=== PATIENT | female | born 1980 | race Caucasian/White ===

== ENCOUNTER → 2020-07-25 09:10 | Outpatient (CLI) | payer BC, SELFPAY ==
--- NOTE | ~2020-07-25 | MMUS_ITS ---
EXAMINATION: MM diagnostic meghan BI w valencia, US breast BI complete HISTORY: Chronic bilateral lumpy texture of the breasts TECHNIQUE: ML, MLO and craniocaudal 3-D tomosynthesis images of both breasts were performed and synth etic 2-D images were generated. CAD analysis was submitted and interpreted. High resolution complete bilateral breast ultrasound was performed. COMPARISON: 06/11/2019 bilateral diagnostic digital mammogram and bilateral complete breast ultrasoun d 04/28/2018 bilateral complete ultrasound 10/04/2017 bilateral diagnostic digital mammogram and bilateral complete breast ultrasound BREAST PARENCHYMAL COMPOSITION: The breasts are extremely dense, which lowers the sensitivity of mamm ography. FINDINGS: MAMMOGRAPHIC FINDINGS: There is a biopsy marker in the upper outer quadrant of the right breast. History of benign prior rig ht breast biopsy in 2015. Bilateral breast masses are noted, particularly in the upper outer right breast and right axillary ta il where at least several low-density circumscribed up to 3 cm or greater masses are noted, likely be nign, probably cysts. Stable approximately 7.5 mm mass is suggested posteriorly in the inner posterio r aspect of the upper inner quadrant of the left breast, unchanged since 06/11/2019. Bilateral complete breast ultrasound examination is recommended. No architectural distortion, malignant calcification, skin thickening or retraction of either breast is detected. ULTRASOUND: There are multiple bilateral simple and septated cysts, the largest on the right situated at 10:00 7 cm from the nipple, measuring up to 5.7 x 4.7 x 1.5 cm dimension. The largest on the left situated at 3:00 6 cm from the nipple, measuring up to 6.4 x 12.6 mm. No suspicious mass or shadowing of either breast is detected. IMPRESSION: 1. Multiple bilateral breast cysts; no evidence of malignancy 2. Routine annual mammographic screening is recommended, with ultrasound as clinically appropriate BI-RADS Category 2: Benign finding(s). Reviewed, dictated and finalized at location A. TECHNICIAN IMPRESSION: 1. Multiple bilateral breast cysts; no evidence of malignancy 2. Routine annual mammographic screening is recommended, with ultrasound as cli nically appropriate BI-RADS Category 2: Benign finding(s).
== END ==
PROVIDERS: Visit Provider Obstetrics & Gynecology
DX: N60.02 Solitary cyst of left breast (principal); N60.01 Solitary cyst of right breast; N63.11 Unspecified lump in the right breast, upper outer quadrant; N63.31 Unspecified lump in axillary tail of the right breast
CPT/HCPCS: 76641; 77062; 77066; G0279

== ENCOUNTER 2021-04-24 10:42 | Outpatient (CLI) | payer BC, SELFPAY ==
--- NOTE | ~2021-04-24 | US_ITS ---
EXAMINATION: US OB follow up DATE: 04/24/2021 11:30 INDICATION: Second trimester viability assessment TECHNIQUE: Real-time ultrasound of the pelvis was performed. The interpreting radiologist was not pre sent for the study. COMPARISON: None. FINDINGS: There is a single living fetus in vertex presentation. The placenta is fundal/anterior. Fet al cardiac activity and movement are noted. heart rate is 161 beats per minute (bpm). The amniotic fluid index is subjectively normal. The following biometric data were obtained: Biparietal diameter (BPD): 2.6 cm; head circumference (HC): 10.0 cm; abdominal circumference (AC): 8. 5 cm; femur length (FL): 1.3 cm. These measurements are concordant. Estimated weight is 97 g +/- 14 g, which correlates with the 66th percentile when 10/19/2021 is used as estimated date of delivery. As single measurements, these parameters are each equal to the following estimated gestational ages w ith ranges of +/- 2 standard deviations: BPD: 14 weeks 5 days +/- 1 weeks 1 days. HC: 14 weeks 5 days +/- 1 weeks 1 days. AC: 14 weeks 6 days +/- 1 weeks 5 days. FL: 14 weeks 0 days +/- 1 weeks 3 days. estimated gestational age based solely on measurements from this exam is 14 weeks 4 days +/- 1 weeks 0 days. IMPRESSION: 1. Single living fetus in vertex presentation. 2. Fundal/anterior placenta. 3. Estimated weight is 97 g +/- 14 g, which correlates with the 66th percentile when 10/19/2021 is used as estimated date of delivery. Reviewed, dictated and finalized at location A. IMPRESSION: 1. Single living fetus in vertex presentation. 2. Fundal/anterior placenta. 3. Estimated weight is 97 g +/- 14 g, which correlates with the 66th perc entile when 10/19/2021 is used as estimated date of delivery.
== END 2021-04-24 10:43 | disposition home or self-care (01) ==
PROVIDERS: PCP Family Medicine; Visit Provider Obstetrics & Gynecology
DX: Z36.89 Encounter for other specified antenatal screening (principal)
CPT/HCPCS: 76816

== ENCOUNTER 2021-08-01 09:44 | Outpatient (CLI) | payer BC, SELFPAY ==
[2021-08-01] MEDS: RHO(D) IMMUNE GLOBULIN 300 MCG/2 ML SYRINGE IM (11:21)
== END 2021-08-01 09:45 | disposition home or self-care (01) ==
LOC: ANHLAB 09:47
PROVIDERS: PCP Family Medicine; Visit Provider Obstetrics & Gynecology
DX: Z34.90 Encounter for supervision of normal pregnancy, unspecified, unspecified trimester (principal); Z3A.00 Weeks of gestation of pregnancy not specified
CPT/HCPCS: 36415; 85461; 90384; 96372; J2790

== ENCOUNTER 2021-09-28 09:35 | Outpatient (RCR) | payer BC, SELFPAY ==
[2021-09-28 10:30] VITALS: BP 110/55; PULSE 85
== END 2021-12-27 23:59 | disposition home or self-care (01) ==
LOC: ANHOBOP 09:35
PROVIDERS: PCP Family Medicine; Visit Provider Obstetrics & Gynecology
DX: O36.8130 Decreased fetal movements, third trimester, not applicable or unspecified (principal); Z3A.36 36 weeks gestation of pregnancy
CPT/HCPCS: 59025

== ENCOUNTER 2021-10-14 11:05 | Outpatient (CLI) | payer BC, SELFPAY ==
[2021-10-14 12:08] LABS: Hematocrit 36.4 % (37.0-47.0); Hemoglobin 12.3 g/dL (12.0-15.0); Mean Corpuscular HGB Conc 33.8 g/dl (32-36); Mean Corpuscular Hemoglobin 32.1 pg (26-34); Mean Platelet Volume 11.8 fl (7.4-10.4); Platelet Count Result 202 k/mm3 (150-375); Red Blood Count 3.83 M/mm3 (4.2-5.4); Red Cell Distribution Width 13.5 % (11.5-14.5); White Blood Count 9.2 K/mm3 (4.5-10.0)
[2021-10-14 14:55] LABS: Rapid Plasma Reagin Non-Reactive (NonReactive)
== END 2021-10-14 11:06 | disposition home or self-care (01) ==
LOC: ANHLAB 11:08
PROVIDERS: PCP Family Medicine; Visit Provider Obstetrics & Gynecology
DX: Z34.93 Encounter for supervision of normal pregnancy, unspecified, third trimester (principal); Z3A.00 Weeks of gestation of pregnancy not specified
CPT/HCPCS: 36415; 85027; 86592; 86850; 86900; 86901

== ENCOUNTER 2021-10-16 09:50 | Inpatient (IN) | payer BC, SELFPAY ==
[2021-10-16] VITALS (49 sets, daily range): BP systolic 55–129; BP diastolic 44–105; PULSE 71–143; RESP 15–20; TEMP 36.1–37.2; O2SAT 83–100; BMI 33.3
--- NOTE | 2021-10-16 10:21 | LDADM ---
This patient, Zara Drake, was admitted to Labor/Delivery/Recovery 120 on 10/16/21 at 09:50. Plans for labor, pain management and were discussed with patient. Patient/family oriented to hospital policies and general routines including ID bracelet, bed and alarms, visiting hours, pain management, procedures, bathroom and other care routines, personal items, smoking policy, room service/diet and guest tray routines, infant security routines, and visiting hours. Patient/Family are encouraged to report perceived risks to care and to ask questions if they do not understand what they are told or what they should do. See OBIX for further documentation.
[2021-10-16] MEDS: LACTATED RINGERS 1,000 ML 125 ML IV CONT (10:39)
--- NOTE | 2021-10-16 12:04 | PM.IMHP ---
H&P: HPI History of Present Illness Date/Time: 10/16/21 12:04 41 y/o G1 at 39 weeks with breech presentation, here for primary . GBS neg Chief Complaint: Here for c section Review of Systems Review of Systems: All systems reviewed & are unremarkable except as noted in HPI and below PMFSH Past Medical History Medical History GERD (gastroesophageal reflux disease) Hypothyroidism affecting Surgical History Surgical History History of LEEP (loop electrosurgical excision procedure) of cervix complicating Family History Family History Father Asthma Sibling Family history of blood dyscrasia Social History Social History Smoking status: Never smoker Alcohol intake: current Substance use: never Spiritual care concerns: No Meds Home Medications and Allergies Home Medications Medication Instructions Recorded Confirmed Type PNV cmb#95-ferrous fumarate-FA 1 tablet PO DAILY 10/03/21 10/16/21 History [] levothyroxine 50 mcg PO DAILY 10/03/21 10/16/21 History omeprazole 40 mg PO DAILY 10/03/21 10/16/21 History Allergies Allergy/AdvReac Type Severity Reaction Status Date / Time amoxicillin [From Augmentin] AdvReac Diarrhea Verified 10/16/21 11:26 clavulanic acid AdvReac Diarrhea Verified 10/16/21 11:26 [From Augmentin] Vital Signs Vital Signs - 24 hr 10/16/21 10:38 Temperature 37.2 C Pulse Rate 90 Respiratory Rate 18 Blood Pressure 124/65 Exam Const: Orientation/consciousness: patient oriented x3 Other: Well-developed, well-nourished female in no acute distress. Neck: Thyroid: thyroid normal Lymphatic: no lymphadenopathy noted (in neck, axilla or inguinal nodes) Resp: Effort & Inspection: normal respiratory effort Auscultation: clear to auscultation bilaterally Cardio: Rate: regular rate Rhythm: regular rhythm Heart sounds: S1 normal heart sound present and S2 normal heart sound present GI: Other: ABD: Soft, nontender, nondistended, gravid. NST reactive. TOCO: occasional contraction. No guarding or rebound tenderness. No hepatosplenomegaly. Bedside ultrasound by me confirms persistent breech presentation. : General: Yes no CVA tenderness Other: Cervix closed. Back/Spine/Pelvis: Back: no CVA tenderness Skin: General skin exam: normal color and no rashes or lesions noted Neuro: General: patient oriented x3 Extrem: Other: Extremities: nontender with no edema Psych: Mental Status: mental status grossly normal Affect: normal affect Assessment and Plan Assessment and plan (1) Breech presentation: Code(s): O32.1XX0 - Maternal care for breech presentation, not applicable or unspecified Status: Acute Assessment and Plan: A: IUP at 39 weeks with breech presentation. P: Offered primary She understands risks of surgery to include risks of anesthesia, risks of pain, infection, bleeding, blood products, thromboembolic phenomena and damage to adjacent structures such as bowel, bladder, ureters, blood vessels and nerves. She understands all these risks and elects to proceed with surgery. (2) Term : Code(s): Z34.90 - Encounter for supervision of normal , unspecified, unspecified trimester Status: Acute
--- NOTE | 2021-10-16 12:07 | WPDANESEPPF ---
Anes - Initial Pre Proc Eval Procedure: Operation Date: 10/16/21 12:00 Proposed Procedures p Section - Munir Chou MD Date/Time: 10/16/21 12:07 Surgeon: Munir Chou MD Pre Op Diagnosis: C/Section Patient Data Age: 41 Gender: F Height: 1.68 m Weight: 93.5 kg Last Vital Signs Temp 37.2 C 10/16/21 10:38 Pulse 90 10/16/21 10:38 Resp 18 10/16/21 10:38 BP 124/65 10/16/21 10:38 Allergies Allergy/AdvReac Type Severity Reaction Status Date / Time amoxicillin [From Augmentin] AdvReac Diarrhea Verified 10/16/21 11:26 clavulanic acid AdvReac Diarrhea Verified 10/16/21 11:26 [From Augmentin] Home Medications Medication Instructions Recorded Confirmed Type PNV cmb#95-ferrous fumarate-FA 1 tablet PO DAILY 10/03/21 10/16/21 History [] levothyroxine 50 mcg PO DAILY 10/03/21 10/16/21 History omeprazole 40 mg PO DAILY 10/03/21 10/16/21 History Patient hx anesthesia problems: none Family hx anesthesia problems: none Results Review: All pre-operative results and documents have been reviewed as part of the pre-operative evaluation. [facility] Past Medical History Medical History GERD (gastroesophageal reflux disease) Hypothyroidism affecting Surgical History Surgical History History of LEEP (loop electrosurgical excision procedure) of cervix complicating Family History Family History Father Asthma Sibling Family history of blood dyscrasia Social History Social History Smoking status: Never smoker Alcohol intake: current Substance use: never Spiritual care concerns: No Anes - Eval Final PreProcedure Day of Procedure 10/16/21 12:07 Patient weight: overweight Heart: regular rate and rhythm Lungs: clear to auscultation Airway: Mallampati scale class II Neurological: alert and oriented Last oral intake: >/= 8 hours ASA classification: II Emergent: no Anesthetic plan: proceed Anesthesia type and monitoring: regional spinal and standard monitoring Results Review: All pre-operative results and documents have been reviewed as part of the pre-operative evaluation. Informed Consent: The patient's anesthetic plan and its attendant risks and benefits were discussed with the patient/family/POA. Questions were solicited and answers provided to the satisfaction of the patient/family/POA.
[2021-10-16] MEDS: ceFAZolin 2 GM/D5W 50 ML 2 GM/50 ML BAG IVPB (12:16)
--- NOTE | 2021-10-16 13:14 | PM.OBPRVD ---
OB - Delivery Note Procedure Delivery date: 10/16/21 Procedure: Procedures Operation Date: 10/16/21 12:00 <No data on this case meets the specified criteria> Primary low transverse delivery Events: Breech Presentation Delivery monitor: External FHT and External Uterine Route of delivery: (LTCS) Specimen: Yes (cord blood) Quantitative Blood Loss (ml): 585 Anesthesia type: Spinal Disposition: PACU Complications: None Narrative: After persistent breech presentation was confirmed by bedside ultrasound, the patient was taken to the operating room where she was prepared and draped in the usual sterile fashion in dorsal supine position with a leftward tilt. She received cefazolin preoperatively. Spinal anesthesia was found to be adequate. A Pfannenstiel skin incision was made and carried through to the underlying layer of the fascia. The fascia was incised in the midline and the incision was extended laterally. The fascia was dissected free of the underlying rectus muscles. The rectus muscles were in the midline. The peritoneum was identified, tented up and entered sharply. The peritoneal incision was extended superiorly and inferiorly with good visualization of the bladder. The bladder blade was placed. The vesicouterine peritoneum was identified, tented up and entered sharply. The incision was extended laterally and the bladder flap was developed. The bladder blade was replaced. The uterus was then incised sharply in a transverse fashion along the lower uterine segment. The incision was extended laterally. The infant's breech was delivered to the level of the scapulae. The arms were swept across the chest and delivered. The head was flexed and gently delivered. The nose and mouth were bulb suctioned. After a delay, the cord was clamped and cut. The was handed off the field. Cord blood was collected. The placenta was removed manually and was passed off the field. The uterus was exteriorized and cleared of all clots and debris. The uterine incision was reapproximated using 0 Monocryl in a running, locked fashion. A second, imbricating layer of the same suture was run. Excellent hemostasis resulted as did excellent reapproximation of the normal anatomy. The uterus was returned the abdomen. The pelvis was irrigated copiously with warmed normal saline. Rigorous hemostasis was assured. The fascial layer was reapproximated using 0 Vicryl in a running fashion. The skin was closed with a running, subcuticular stitch of 4 0 Vicryl. Dermaflex was applied externally. Sponge, lap, needle and instrument counts were correct. The patient was taken to the recovery room in stable condition. The infant went to the nursery in stable condition. I was present and scrubbed the entire procedure. Baby Date of : 10/16/21 Time of : 12:45 Weeks of gestation at delivery: 39 Infant gender: Male Weight (pounds): 8 Weight (ounces): 4 presentation: breech Placenta delivery description: Manual Removal and Normal Configuration Cord Vessel Description: 3 Vessels and Delayed Cord Clamping score one minute: 9 score five minutes: 9
--- NOTE | 2021-10-16 13:18 | P.DS_ITS ---
DS: Admitting Diagnosis Discharge Date 10/19/21 Admitting Diagnosis IUP at 39 weeks Breech presentation DS: Discharge Diagnosis Discharge Diagnosis (1) Term : Code(s): Z34.90 - Encounter for supervision of normal , unspecified, unspecified trimester Status: Acute (2) Breech presentation: Code(s): O32.1XX0 - Maternal care for breech presentation, not applicable or unspecified Status: Acute OB - DS: Summary OB Procedures : NST and Ultrasound OB Procedures Intrapartum: OB Procedures: : None Peripartum Data Procedures: Procedures Operation Date: 10/16/21 12:00 <No data on this case meets the specified criteria> Primary LTCS Discharge Plan Discharge Attending physician on discharge: Munir Chou Discharging Clinician: Munir Chou Patient Disposition: Home, Self-Care Activity: may shower, may drive after 2 weeks and pelvic rest Diet: regular Wound Care Instructions: keep dressing dry Discharge Instructions: Call or return if temperature above 100.4? F, increased abdominal pain, incr eased vaginal bleeding or any new problems. Stand Alone Forms: General Discharge Information Follow-up/Referrals: Munir Chou MD [Physician] - 4 Weeks Discharge Medications: New ibuprofen 600 mg tablet 600 mg PO Q6H PRN (Reason: cramps) Qty: 30 RF: 0 hydrocodone-acetaminophen 5-325 mg tablet 1 - 2 tablet PO Q6H Qty: 30 RF: 0 Continued omeprazole 40 mg Capsule,Delayed Release(Dr/Ec) 40 mg PO DAILY RF: 0 levothyroxine 50 mcg Tablet 50 mcg PO DAILY RF: 0 PNV cmb#95-ferrous fumarate-FA [] 28 mg iron- 800 mcg Tablet 1 tablet PO DAILY RF: 0 Date of admission: 10/16/21 09:50 Primary Care Provider: Trena Foss Admitting Provider: Munir Chou Attending physician on admission: Munir Chou Condition: Stable
[2021-10-16] MEDS: OXYTOCIN 30 UNITS/NS 500 ML 30 UNITS/500 ML BAG 125 UNITS IV CONT (13:44)
[2021-10-16] MEDS: KETOROLAC 30 MG/ML VIAL (*BKC) IV PUSH ×2 (14:34→20:11)
[2021-10-16] MEDS: LORATADINE 10 MG TABLET PO (14:52)
--- NOTE | 2021-10-16 14:57 | SUR.PHASEI ---
Report called to Paulina Kumar RN pt going to room 282 for pp care once recovery completed.
--- NOTE | 2021-10-16 15:45 | PC.NURSE ---
Patient transferred to post room #282 per stretcher from labor and delivery. Support person present. Oriented to unit, room, information board, rooming in, admission packet and security measures. Patient verbalizes understanding.
[2021-10-16] MEDS: DEXTROSE 5%/0.45% SOD CHL 1,000 ML 125 ML IV CONT (17:54)
[2021-10-17 04:30] VITALS: BP 112/62; PULSE 105; RESP 16; TEMP 36.9; O2SAT 98
[2021-10-17] MEDS: IBUPROFEN 600 MG TABLET PO ×4 (04:51→23:55)
[2021-10-17 05:02] LABS: Basophils Percent Auto 0.4 % (0.2-1.2); Eosinophils Absolute Auto 0.1 K/mm3 (0-0.3); Eosinophils Percent Auto 0.9 % (0-4.4); Hematocrit 31.7 % (37.0-47.0); Hemoglobin 10.6 g/dL (12.0-15.0); Immature Granulocyte Absolute 0.06 K/mm3 (0.00-0.031); Immature Granulocyte Percent A 0.6 % (0-0.5); Lymphocytes Percent Auto 9.3 % (18.3-44.2); Mean Corpuscular HGB Conc 33.4 g/dl (32-36); Mean Corpuscular Hemoglobin 32.4 pg (26-34); Mean Corpuscular Volume 96.9 fl (80-100); Mean Platelet Volume 11.7 fl (7.4-10.4); Monocytes Absolute Auto 0.8 K/mm3 (0.1-0.6); Monocytes Percent Auto 7.4 % (2.6-8.5); Neutrophils Absolute Auto 8.8 K/mm3 (1.3-6.7); Neutrophils Percent Auto 81.4 % (45.5-73.1); Platelet Count Result 185 k/mm3 (150-375); Red Blood Count 3.27 M/mm3 (4.2-5.4); Red Cell Distribution Width 13.3 % (11.5-14.5); White Blood Count 10.7 K/mm3 (4.5-10.0)
--- NOTE | 2021-10-17 07:01 | P.PNOB_ITS ---
OB - PN: Subj Subjective Date/time seen: 10/17/21 07:01 Patient comments: no complaints and pain well controlled baby status: doing well OB - PN: Obj Data Labs CBC & Chem 7: 10/17/21 04:44 Labs: Laboratory Results - last 24 hr 10/17/21 04:44 WBC 10.7 H RBC 3.27 L Hgb 10.6 L Hct 31.7 L MCV 96.9 MCH 32.4 MCHC 33.4 RDW 13.3 Plt Count 185 MPV 11.7 H Immature Gran % (Auto) 0.6 H Neut % (Auto) 81.4 H Lymph % (Auto) 9.3 L Doddridge % (Auto) 7.4 Eos % (Auto) 0.9 Baso % (Auto) 0.4 Lymph # (Auto) 1.00 Dod[place]idge # (Auto) 0.8 H Eos # (Auto) 0.1 Baso # (Auto) 0.0 Abs Immat Gran (auto) 0.06 H Absolute Neuts (auto) 8.8 H Absolute Nucleated RBC 0.0 Nucleated RBC % 0.0 OB - PN A/P Plan day: 1 Plan: routine care Time Spent With Patient Time: Total time spent is greater than 50% in coordination of care (as documented) at patient's floor/unit and/or counseling patient: Time with patient: less than 15 minutes Review of Systems Review of Systems: All systems reviewed & are unremarkable except as noted in HPI and below Exam Const: General: no acute distress Eyes: General: appearance normal, both eyes and all related structures Neck: Neck: supple and no JVD Thyroid: thyroid normal Resp: Effort & Inspection: normal respiratory effort Auscultation: clear to auscultation bilaterally Cardio: Rate: regular rate Rhythm: regular rhythm GI: Inspection: normal to inspection and incision (cdi) Auscultation: normal bowel sounds : General: Yes bladder normal to palpation External Female Exam: normal external appearance Speculum Exam - Vagina: normal vaginal discharge and No vaginal bleeding Speculum Exam - Cervix: nontender Bimanual exam- vagina & uterus: bladder normal to palpation and No Cervical tenderness present OB/external & speculum: No vaginal bleeding Skin: General skin exam: no rashes or lesions noted Extrem: General: normal to inspection and no edema Psych: Mental Status: mental status grossly normal Affect: normal affect
[2021-10-17 08:00] VITALS: BP 113/71; PULSE 90; RESP 18; TEMP 36.8
[2021-10-17] MEDS: MULTIVIT/MIN/PREN/FOL AC/IRON TABLET 1 TAB PO (08:09)
[2021-10-17] MEDS: SIMETHICONE 80 MG TAB.CHEW PO ×3 (08:09→22:58)
[2021-10-17] MEDS: LANOLIN (LANSINOH) 7.5 GM CREAM 1 APPLIC TOPICAL (08:11)
--- NOTE | 2021-10-17 09:00 | PC.NURSE ---
Nipple shield provided to mother due to shallow latch. Reviewed good handwashing, cleaning the nipple shield and application. Discussed with mom the nipple shield precautions and possible complications. Mom and baby guide referred to as a resource for using a nipple shield, out-patient services and when to call a provider. Mom voiced understanding of the importance of hand expression, nipple stimulation and initiating a pumping schedule if continues to nurse with the shield.
[2021-10-17] MEDS: HYDROcodone/acetaminophen (*CRX) 5-325 MG TABLET 1 TAB PO ×2 (10:20→22:58)
[2021-10-17 12:30] VITALS: BP 110/70; PULSE 88; RESP 18; TEMP 36.8
--- NOTE | 2021-10-17 13:21 | WPDANLDPN2 ---
Anes-Prog Note L&D Date/Time: 10/17/21 13:21 Comfortable throughout: section Neuraxial method: spinal Epidural/Spinal procedure site: clean & non-tender Neuro status: Neuro function grossly intact. Cardiovascular status: normal Respiratory status: normal Airway patency: baseline Mental status: baseline Post-Op hydration status: normal Vital Signs: Last Vital Signs Temp 36.8 C 10/17/21 08:00 Pulse 90 10/17/21 08:00 Resp 18 10/17/21 08:00 BP 113/71 10/17/21 08:00 Pulse Ox 98 10/17/21 04:30 Pain score (VAS): 08/31 I/O: Intake & Output 10/16/21 10/17/21 10/17/21 23:59 07:59 15:59 Intake Total 500 1200 200 Output Total 925 1400 600 Balance -425 -200 -400 Post-procedural complaints: none Patient feedback: Patient satisfied with anesthetic care.
--- NOTE | 2021-10-17 13:22 | WPDANLDNPN2 ---
Anes-Prog Note L&D-Neuraxial Date/Time: 10/17/21 13:22 Neuraxial medications: intrathecal PF morphine Opiod-related complaints: none Patient feedback: Patient satisfied with post-operative pain management.
--- NOTE | 2021-10-17 14:00 | PC.NURSE ---
Breast pump provided due to ineffective latch. Reviewed information regarding pump care, hand washing, nipple care and pumping 8 times in 24 hours (1-2 at night) for 10-15 minutes. Discussed she may want to pump after feedings or between feedings. If after feeding, rest for 5-10 minutes. Get something to eat/drink, use the restroom, then pump. Collection and storage of breastmilk per mom and baby guide. Encouraged mom to place skin to skin, breast massage and use hand expression and/or a breast pump in a relaxing atmosphere. Reviewed recording pumping schedule on the feeding sheet . Referred to the visual handout along with the mom and baby guide as a resource and when to call a provider.
[2021-10-17] MEDS: DOCUSATE SODIUM 100 MG CAPSULE PO (18:09)
[2021-10-17 19:00] VITALS: BP 110/55; PULSE 95; RESP 16; TEMP 36.7; O2SAT 98
[2021-10-18] MEDS: IBUPROFEN 600 MG TABLET PO ×3 (05:45→19:09)
--- NOTE | 2021-10-18 07:08 | PM.OBPNVD ---
OB - PN: Subj Subjective Date/time seen: 10/18/21 07:08 Patient comments: no complaints and pain well controlled baby status: doing well and nursing well OB - PN: Obj Data Labs CBC & Chem 7: 10/17/21 04:44 OB - PN A/P Time Spent With Patient Time: Total time spent is greater than 50% in coordination of care (as documented) at patient's floor/unit and/or counseling patient: Review of Systems Review of Systems: All systems reviewed & are unremarkable except as noted in HPI and below Exam Const: General: no acute distress Eyes: General: appearance normal, both eyes and all related structures Neck: Neck: supple and no JVD Thyroid: thyroid normal Resp: Effort & Inspection: normal respiratory effort Auscultation: clear to auscultation bilaterally Cardio: Rate: regular rate Rhythm: regular rhythm GI: Inspection: non-distended GI Palp: Yes Soft to palpation, No Tenderness to palpation present (GI) and No Guarding due to palpation present (GI) Auscultation: normal bowel sounds : General: Yes bladder normal to palpation External Female Exam: normal external appearance Speculum Exam - Vagina: normal vaginal discharge and No vaginal bleeding Speculum Exam - Cervix: nontender Bimanual exam- vagina & uterus: bladder normal to palpation and No Cervical tenderness present OB/external & speculum: No vaginal bleeding Skin: General skin exam: no rashes or lesions noted Extrem: General: normal to inspection and no edema Psych: Mental Status: mental status grossly normal Affect: normal affect
[2021-10-18 08:00] VITALS: BP 139/66; PULSE 87; RESP 18; TEMP 36.9
[2021-10-18] MEDS: MULTIVIT/MIN/PREN/FOL AC/IRON TABLET 1 TAB PO (08:17)
[2021-10-18] MEDS: DOCUSATE SODIUM 100 MG CAPSULE PO ×2 (08:17→16:21)
[2021-10-18] MEDS: SIMETHICONE 80 MG TAB.CHEW PO ×4 (08:18→19:10)
[2021-10-18] MEDS: HYDROcodone/acetaminophen (*CRX) 5-325 MG TABLET 1 TAB PO ×5 (10:07→22:46)
[2021-10-18 20:00] VITALS: BP 121/74; PULSE 88; RESP 16; TEMP 36.7; O2SAT 98
[2021-10-19] MEDS: IBUPROFEN 600 MG TABLET PO (03:00)
[2021-10-19] MEDS: HYDROcodone/acetaminophen (*CRX) 5-325 MG TABLET 1 TAB PO ×3 (03:00→13:08)
[2021-10-19] MEDS: SIMETHICONE 80 MG TAB.CHEW PO ×2 (07:40→13:09)
[2021-10-19] MEDS: DOCUSATE SODIUM 100 MG CAPSULE PO (07:40)
[2021-10-19] MEDS: MULTIVIT/MIN/PREN/FOL AC/IRON TABLET 1 TAB PO (07:41)
[2021-10-19] MEDS: LANOLIN (LANSINOH) 7.5 GM CREAM 1 APPLIC TOPICAL (07:42)
[2021-10-19 08:00] VITALS: BP 130/65; PULSE 81; RESP 18; TEMP 36.9; O2SAT 98
--- NOTE | 2021-10-19 08:57 | PM.OBPNVD ---
OB - PN: Subj Subjective Date/time seen: 10/19/21 08:57 Narrative: Pain OK. Tolerating diet. Would like to go home. OB - PN: Obj Data Labs CBC & Chem 7: 10/17/21 04:44 OB - PN A/P Plan Comments: A: POD#3, doing well. P: Home to f/u 4 weeks. Exam Narrative: AVSS ABD soft, nontender, fundus firm. Incision c/d/i. EXT nontender
--- NOTE | 2021-10-19 10:13 | PC.NURSE ---
[id number] Introductions made and consulted with patient to assess needs related to . Mother led conversation with her experience with feeding baby so far. Mother works well with her infant. Reviewed good handwashing when working with infant, breast, nipples and how to protect the nipples with a deep latch. Encouraged understanding the benefits of skin to skin, responding to feeding cues, frequencies of feeding 8-12 times in 24 hours (approximately 2-3 hours), duration of feedings, milk production, intake/output feeding sheet and signs of adequate intake. Discussed stimulating infant with skin to skin, hand expressing colostrum, touch and talking to infant to encourage eating at the breast. Reviewed positioning and alignment, supporting breast, off-centered (asymmetrical latch) and leading with the chin with big open wide gape. Infant latched optimally to the right breast in football position. Education given to mother of how to visualize suck/swallow ratios and drinking at the breast. Infant was able to maintain latch without discomfort to mother for 10 min. Infant detached and nipple was not misshaped. Nipple care, comfort and healing with warm, wet washcloth to rinse breast and leave to air-dry. Assisted mother to practice football positioning to the left breast. Infant maintained good rocking motion with suck/ swallow ratio and no discomfort to mother for 10 min, then self detached. Resources used to facilitate learning were used from the visual handout/ tool/mom and baby guide. Mother voiced understanding responding to feeding cues, may need to stimulating infant approximately 2-3 hours from the start of the last feeding, calling for assistance if the infant does not latch or there discomfort . Reported to primary RN.
--- NOTE | 2021-10-19 10:23 | PC.NURSE ---
0925 - Mother effectively latched independently to the left breast in football position. has appropriate suck/swallow ratios. Mother denies discomfort. Baby self detaches and nipple is not misshaped. Infant is content with arms and hands relaxed. Early feeding cues reviewed with parents with the visual handout resource. Parents verbalized understanding of information shared. Reported feedings to primary RN.
--- NOTE | 2021-10-19 12:15 | PC.NURSE ---
Self care and infant care discharge instructions given including follow up visit date and time. Parents comfortable with discharge. No questions or concerns voiced. Very pleasant and cooperative.
[2021-10-19] MEDS: BISACODYL 10 MG SUPPOSITORY RECTAL (13:10)
--- NOTE | 2021-10-19 15:40 | PC.NURSE ---
[place] 5 given po to pt. for pain rating of 4 @ 1540. Unable to charge or scan due to pt. being discharged from system. Given for complaints of abdominal and incisional pain.
[2021-10-20 09:53] VITALS: BP 120/78; PULSE 80; RESP 20; TEMP 37; O2SAT 99
== END 2021-10-19 15:53 | disposition home or self-care (01) | DRG 788 ==
LOC: ANHLDR 13:20 → ANHOB2 16:06
PROVIDERS: Admitting Provider Obstetrics & Gynecology; PCP Family Medicine; Visit Provider Obstetrics & Gynecology
PROC: 10D00Z1 Extraction of Products of Conception, Low, Open Approach (ICD-10-PCS; CPT 59514; principal; 2021-10-16 12:00)
DX: O32.1XX0 Maternal care for breech presentation, not applicable or unspecified (principal); O99.284 Endocrine, nutritional and metabolic diseases complicating childbirth; E03.9 Hypothyroidism, unspecified; Z3A.39 39 weeks gestation of pregnancy; Z37.0 Single live birth; O99.62 Diseases of the digestive system complicating childbirth; K21.9 Gastro-esophageal reflux disease without esophagitis
CPT/HCPCS: 36415; 85025; A9270; J0131; J0690; J1885; J2274; J2405; J2590; J7120

== ENCOUNTER → 2022-02-02 14:27 | Outpatient (CLI) | payer BC, SELFPAY ==
--- NOTE | ~2022-02-02 | MMUS_ITS ---
EXAMINATION: MM diagnostic meghan BI w valencia, US breast BI limited HISTORY: Palpable right breast abnormality. History of mastitis. Chronic bilateral breast lumpiness. TECHNIQUE: Additional 3-D tomosynthesis images of the breasts were performed and synthetic 2-D images were generated. CAD analysis was submitted and interpreted. High resolution limited bilateral breast ultrasound was performed. COMPARISON: Comparison to multiple prior studies sequentially, with oldest reviewed study dated 05/26/2016. BREAST PARENCHYMAL COMPOSITION: The breasts are extremely dense, which lowers the sensitivity of mamm ography FINDINGS: MAMMOGRAPHIC FINDINGS: There is a large mass partially obscured by overlying dense fibroglandular tissue in the upper outer quadrant of the right breast which corresponds to the mammographic finding. There is a benign appeari ng circumscribed mass in the upper inner quadrant of the right breast. No there are focal asymmetries in the medial aspect of the left breast without discrete mass or architectural distortion. There are no suspicious calcifications in either breast. ULTRASOUND: Limited right breast ultrasound: At 11:00, 9 cm from the nipple there are 2 cysts, largest measuring 6.1 cm maximum dimension with the smaller cyst measuring 1.8 cm maximum dimension. These correspond t o the area of mammographic abnormality. Limited left breast ultrasound: At 2:00, 6 cm from the nipple there are 2 adjacent cysts measuring 1. 6 and 0.5 cm respectively. No suspicious masses are identified in either breast to suggest malignancy . IMPRESSION: 1. No evidence for malignancy in either breast. Benign cysts. 2. Routine yearly screening mammogram and regular clinical breast examination are recommended. BI-RADS Category 2: Benign finding(s). Reviewed, dictated and finalized at location A. IMPRESSION: 1. No evidence for malignancy in either breast. Benign cysts. 2. Routine yearly screening mammogram and regular clinical breast examination a re recommended. BI-RADS Category 2: Benign finding(s).
== END ==
PROVIDERS: PCP Family Medicine; Visit Provider Obstetrics & Gynecology
DX: N64.59 Other signs and symptoms in breast (principal)
CPT/HCPCS: 76642; 77062; 77066; G0279

== ENCOUNTER → 2023-07-22 14:24 | Outpatient (CLI) | payer OTHER, SELFPAY ==
--- NOTE | ~2023-07-22 | MMUS_ITS ---
EXAMINATION: MM diagnostic meghan BI w valencia, US breast BI complete HISTORY: Bilateral palpable abnormalities TECHNIQUE: ML, MLO and CC full field 3-D tomosynthesis images of both breasts and spot right 3-D [place] synthesis images were performed and synthetic 2-D images were generated. CAD analysis was submitted a nd interpreted. High resolution complete breast ultrasound examination including all 4 quadrants and subareolar areas was performed. COMPARISON: 02/02/2022 bilateral diagnostic mammography and bilateral Limited breast ultrasound 07/2020 bilateral diagnostic mammography and bilateral complete breast ultrasound examination BREAST PARENCHYMAL COMPOSITION: The breasts are extremely dense, which lowers the sensitivity of mamm ography. FINDINGS: MAMMOGRAPHIC FINDINGS: Biopsy marker is noted in the upper outer quadrant of the right breast: History of prior benign right breast biopsy. Approximately 2.5 x 4.5 cm low-density circumscribed opacity with halo sign is noted in the posterior upper outer quadrant of the right breast, likely a benign cyst. No suspicious mass of either breast is evident. Occasional bilateral punctate benign calcifications and left calcified microhematoma. No malignant ca lcification, or architectural distortion, skin thickening or retraction is detected. ULTRASOUND: . (The multiple bilateral breast cysts, largest on the right at T10-11 o'clock 9 cm from the nipple, measuring up to 2.2 x 4.3 cm, with through transmission posterior enhancement. The largest cyst on th e left isn't 2:00 6 cm from nipple, measuring 5 x 4 x 6.6 mm. No suspicious mass or shadowing of either breast is evident. IMPRESSION: 1. Multiple bilateral benign cysts; no mammographic or sonographic evidence of malignancy 2. Routine annual mammographic screening is recommended BI-RADS Category 2: Benign finding(s). Reviewed, dictated and finalized at location A. GRINDER IMPRESSION: 1. Multiple bilateral benign cysts; no mammographic or sonographic evidence of malignancy 2. Routine annual mammographic screening is recommended BI-RADS Category 2: Benign finding(s).
== END ==
PROVIDERS: PCP Obstetrics & Gynecology; Visit Provider Obstetrics & Gynecology
DX: N60.12 Diffuse cystic mastopathy of left breast (principal); N60.11 Diffuse cystic mastopathy of right breast
CPT/HCPCS: 76641; 77062; 77066; G0279

== ENCOUNTER 2025-01-25 13:39 | Outpatient (CLI) | payer OTHER, SELFPAY ==
--- NOTE | ~2025-01-25 | MM_ITS ---
EXAMINATION: MM screening meghan BI w valencia HISTORY: Screening TECHNIQUE: Craniocaudal and mediolateral oblique 3-D tomosynthesis images were obtained and synthetic 2-D images were generated. CAD analysis was submitted and interpreted. COMPARISON: Comparison to multiple prior studies sequentially, with oldest reviewed study dated 10/04. BREAST PARENCHYMAL COMPOSITION: Dense: The breasts are heterogeneously dense, which may obscure small masses FINDINGS: Stable mass upper outer quadrant of the right breast, consistent with cyst identified on pr evious ultrasound dated 07/22/2023. There is new focal asymmetry superiorly in the left breast, middle third, seen on MLO view only. IMPRESSION: 1. New focal left breast asymmetry superiorly on MLO view, middle third. 2. Additional mammographic views and possible breast ultrasound are recommended. BI-RADS Category 0: Incomplete: Needs additional imaging evaluation. Reviewed, dictated and finalized at location B. IMPRESSION: 1. New focal left breast asymmetry superiorly on MLO view, middle third. 2. Additional mammographic views and possible breast ultrasound are recommended . BI-RADS Category 0: Incomplete: Needs additional imaging evaluation.
== END 2025-01-25 13:40 | disposition home or self-care (01) ==
LOC: MICIMG 13:40
PROVIDERS: PCP Obstetrics & Gynecology; Visit Provider Obstetrics & Gynecology
DX: Z12.31 Encounter for screening mammogram for malignant neoplasm of breast (principal); N64.89 Other specified disorders of breast
CPT/HCPCS: 77063; 77067

== ENCOUNTER 2025-03-11 08:53 | Outpatient (CLI) | payer OTHER, SELFPAY ==
--- NOTE | ~2025-03-11 | US_ITS ---
EXAMINATION: MM diagnostic meghan LT w valencia, US breast LT limited INDICATION: 44-year old female; BI-RADS 0, left breast asymmetry COMPARISON: 01/25/2025 TECHNIQUE: Digital breast tomosynthesis True lateral and spot compression CC and MLO views of the LEF T breast were obtained with computer-aided detection to assist in interpretation of the study. FINDINGS: The breasts are heterogeneously dense, which may obscure small masses. The asymmetry of concern in the Superior left breast partially persists on spot compression views. Ul trasound was performed for further evaluation. LEFT BREAST ULTRASOUND FINDINGS: Targeted evaluation of the area of concern was completed. There is a 0.5 x 0.3 x 0.6 cm simple cyst a t 2:00 location 6 cm from the nipple in the LEFT breast that correlates to the area of Mammographic f inding. IMPRESSION: Benign LEFT breast simple cyst correlates to mammographic finding. No further investigation necessary . RECOMMENDATION: ANNUAL SCREENING BILATERAL MAMMOGRAPHY BI-RADS Category 2: Benign finding(s). Reviewed, dictated and finalized at location B. IMPRESSION: Benign LEFT breast simple cyst correlates to mammographic finding. No further i nvestigation necessary. RECOMMENDATION: ANNUAL SCREENING BILATERAL MAMMOGRAPHY BI-RADS Category 2: Benign finding(s).
--- NOTE | ~2025-03-11 | MM_ITS ---
EXAMINATION: MM diagnostic meghan LT w valencia, US breast LT limited INDICATION: 44-year old female; BI-RADS 0, left breast asymmetry COMPARISON: 01/25/2025 TECHNIQUE: Digital breast tomosynthesis True lateral and spot compression CC and MLO views of the LEF T breast were obtained with computer-aided detection to assist in interpretation of the study. FINDINGS: The breasts are heterogeneously dense, which may obscure small masses. The asymmetry of concern in the Superior left breast partially persists on spot compression views. Ul trasound was performed for further evaluation. LEFT BREAST ULTRASOUND FINDINGS: Targeted evaluation of the area of concern was completed. There is a 0.5 x 0.3 x 0.6 cm simple cyst a t 2:00 location 6 cm from the nipple in the LEFT breast that correlates to the area of Mammographic f inding. IMPRESSION: Benign LEFT breast simple cyst correlates to mammographic finding. No further investigation necessary . RECOMMENDATION: ANNUAL SCREENING BILATERAL MAMMOGRAPHY BI-RADS Category 2: Benign finding(s). Reviewed, dictated and finalized at location B. IMPRESSION: Benign LEFT breast simple cyst correlates to mammographic finding. No further i nvestigation necessary. RECOMMENDATION: ANNUAL SCREENING BILATERAL MAMMOGRAPHY BI-RADS Category 2: Benign finding(s).
== END 2025-03-11 08:54 | disposition home or self-care (01) ==
LOC: MICIMG 08:53
PROVIDERS: PCP Obstetrics & Gynecology; Visit Provider Obstetrics & Gynecology
DX: R92.8 Other abnormal and inconclusive findings on diagnostic imaging of breast (principal)
CPT/HCPCS: 76642; 77061; 77065; G0279

== ENCOUNTER 2025-05-13 08:16 | Emergency (ER) | payer OTHER, SELFPAY ==
--- OUTSIDE RECORDS SUMMARY | 2010-06-30 08:30 | XMS_ITS | Continuity of Care Document ---
Author Organization [facility] [employer] Address [address] [place] [address] Phone Care Team Providers Care Food Beverage Supervisor Name Role Phone Rex Chong MD Unavailable Unavailable Procedures Procedure Date OFFICE/OUTPATIENT VISIT, [facility] CHEST X-RAY METABOLIC PANEL TOTAL CA ASSAY THYROID STIM HORMONE COMPLETE CBC W/AUTO DIFF WBC Advance Directives Directive Yes / No Effective Date File Name No Information Encounters Encounter Description Practice Location Reason(s) For Visit Diagnoses Date Provider Providers Copied on Encounter OFFICE/OUTPAT IENT VISIT, [facility], [address], [place], [place], [id number], [place] tel:[phone] [facility] No Information Castillo Goodman. [address] [place], [address], [place]. tel:[phone] Referring Provider: Rex Christie, [address] [place], [address]. tel:[phone] Family History Family Member Type Diagnosis Age At Onset No Information Payers Payer name Insurance type Covered constitution party ID Authoriza tion(s) No Information Social History Type Description Quantity Date Captured Comments Sex Female Smoking Status No Information Chief Complaint And Reason For Visit No Information Reason For Referral Reason For Referral No Information History Of Present Illness Encounter Date Complaint History Of Prese nt Illness No Information Functional Status Date Functional Assessmen t No Information Instructions Date Instruction Additional Infor mation No Information Assessments Type Assessment Date No Information Patient Care Teams Name Effective Dates (start - stop) Status Members No Information
--- OUTSIDE RECORDS SUMMARY | 2010-06-30 08:30 | XMS_ITS | Continuity of Care Document ---
Author Organization [facility] [employer] Address [address] [place] [address] Phone Care Team Providers Care Health And Safety Manager Name Role Phone Rex Chong MD Unavailable Unavailable Procedures Procedure Date OFFICE/OUTPATIENT VISIT, [facility] CHEST X-RAY METABOLIC PANEL TOTAL CA ASSAY THYROID STIM HORMONE COMPLETE CBC W/AUTO DIFF WBC Advance Directives Directive Yes / No Effective Date File Name No Information Encounters Encounter Description Practice Location Reason(s) For Visit Diagnoses Date Provider Providers Copied on Encounter OFFICE/OUTPAT IENT VISIT, [facility] [employer] [facility], [address], [place], [place], [id number], [place] tel:[phone] [facility] No Information Castillo Goodman. [address] [place], [address], [place]. tel:[phone] Referring Provider: Rex Christie, [address] [place], [address]. tel:[phone] Family History Family Member Type Diagnosis Age At Onset No Information Payers Payer name Insurance type Covered democrat ID Authoriza tion(s) No Information Social History [...]
[2025-05-13 08:24] VITALS: BP 123/75; PULSE 90; RESP 18; TEMP 36.7; O2SAT 98
--- NOTE | 2025-05-13 08:45 | ED_ITS ---
HPI - URI/Sore Throat General Chief Complaint: Upper Respiratory Infection Stated Complaint: Congestion Time Seen by Provider: 05/13/25 08:42 Source: patient, RN notes reviewed and old records reviewed Mode of arrival: ambulatory Limitations: no limitations History of Present Illness HPI Narrative: 44 year old female who presents to [facility] care with complaints of >1 week duration history of chest congestion, cough, post nasal drainage, headache with expectoration of yellowish greenish mucous. Patient reports no known fevers but reports chills, denies any shortness of breath or any complaints of nausea,vomiting or diarrhea. Patient reports that child is ill also with similar symptoms. Patient reports that she has taken Zyrtec D and Ibuprofen for her symptoms. MD elicited complaint: cough, rhinorrhea, nasal congestion and other (headache) Onset (ago): week(s) (greater that 1 week) Severity: moderate Description of mucous: yellow and green Able to tolerate fluids by mouth: Yes Treatments prior to arrival: ibuprofen and other (Sherrell D) Related Data Allergies Allergy/AdvReac Type Severity Reaction Status Date / Time amoxicillin (From Augmentin) AdvReac Diarrhea Verified 05/13/25 08:28 clavulanic acid (From AdvReac Diarrhea Verified 05/13/25 08:28 Augmentin) Review of Systems Review of Systems: CONSTITUTIONAL: reports malaise, chills, sweats, unknown if fever. EYES: Denies visual changes, redness, or discharge. ENT: Reports rhinorrhea, congestion, sinus pain,no otalgia and no sore throat. CARDIOVASCULAR: Denies chest pain, palpitations, or edema. RESPIRATORY: Reports productive cough.? Denies dyspnea. GASTROINTESTINAL: Denies abdominal pain, nausea, vomiting, diarrhea SKIN: Denies rash or itching. MUSCULOSKELETAL: Denies myalgia. NEUROLOGIC: reports headache. All systems reviewed & are unremarkable except as noted in HPI and below PMFSH Past Medical History Medical History (Updated 05/14/25 @ 07:23 by Adriana Franklin NP) Hormone replacement therapy (HRT) Psoriasis Hypothyroidism affecting GERD (gastroesophageal reflux disease) Surgical History Surgical History (Updated 05/14/25 @ 07:16 by Adriana Franklin NP) [place] teeth extracted History of placement of ear tubes History of LEEP (loop electrosurgical excision procedure) of cervix complicating Family History Family History Father Asthma Sibling Family history of blood dyscrasia Social History Social History (Updated 05/14/25 @ 07:15 by Adriana Franklin NP) Smoking status: Never smoker Alcohol intake: current Substance use: never Living arrangements: with family Gender identity (if verbalized by the patient): Female Spiritual care concerns: No Comments At time of signature, agree with nursing past medical, surgical, social and family history. There is no relevant family history pertinent to the presenting complaint Exam Narrative: GENERAL: Well-appearing, well-nourished, and in no acute distress. HEAD: Normocephalic EYES: PERRLA, conjunctivae clear ENT: Nares clear, turbinates edematous and erythematous, clear to yellow discharge, sinus pressure and headaches. Mucous membranes moist. TM pearly colon with dull light reflex bilaterally; no tragal tenderness. Oropharynx erythematous without lesions. Tonsils not enlarged and without exudate, no drooling, no hoarseness, no trismus, uvula midline.post nasal discharge NECK: Supple. No lymphadenopathy CHEST: Clear to auscultation, breath sounds equal. No wheezing, rhonchi, rales, or stridor. No respiratory distress, speaks in full sentences.productive cough SAO2 98% on room air HEART: Regular rate and rhythm. No murmur heard. SKIN: Warm, dry, history of psoriasis NEURO: Alert and oriented x3. PSYCH: Normal mood and affect Course Course Emergency Course: Patient is aware of diagnosis, understands and agrees to treatment plan.? Anticipatory guidance given.? Patient agrees to follow-up as directed and is aware of reasons to seek care at the emergency department. Portions of this record may have been created with voice recognition software Level of Care: Express Care Visit Vital Signs Vital signs: Vital Signs Temperature 36.7 C 05/13/25 08:24 Pulse Rate 90 05/13/25 08:24 Respiratory Rate 18 05/13/25 08:24 Blood Pressure 123/75 05/13/25 08:24 Pulse Oximetry 98 05/13/25 08:24 Oxygen Delivery Room Air 05/13/25 08:24 Temperature 36.7 C 05/13/25 08:24 Pulse Rate 90 05/13/25 08:24 Respiratory Rate 18 05/13/25 08:24 Blood Pressure 123/75 05/13/25 08:24 Pulse Oximetry 98 05/13/25 08:24 Oxygen Delivery Room Air 05/13/25 08:24 Reviewed MDM - URI/Sore Throat MDM Narrative Medical decision making narrative: Differential diagnosis considered: Gomez virus, strep pharyngitis, allergic rhinitis, upper respiratory tract infection, sinusitis, rhinosinusitis, nasopharyngitis. viral pharyngitis, otitis media, otitis externa, pneumonia, bronchitis, viral cough syndrome, viral syndrome, and influenza.? Exam findings show no acute concerns or changes; patient is non-toxic appearing and is in no distress.? Patient is appropriate for outpatient treatment and follow-up. Differential Diagnosis Differential diagnosis: Likely upper respiratory infection, sinusitis, viral infection and other (acute cough) Medical Records Attestation: I reviewed the patient's medical records. Lab Data Attestation: I reviewed the patient's lab results. Critical Care Time Critical Care Time Critical Care Time: No Discharge Plan Discharge Clinical Impression: Acute cough Sinusitis Qualifiers: Sinusitis location: pansinusitis Chronicity: acute Recurrence: not specified as recurrent Qualified Code(s): J01.40 - Acute pansinusitis, unspecified Patient Disposition: Home Condition: Stable Instructions: Antibiotic Form, Sinusitis (ED), Acute Cough (ED) Additional Instructions: Increase fluids especially juices and water [id number] cough and cold medicine of your choice for your symptoms Continue your Zyrtec D Tylenol or ibuprofen for any fever or pain Steroids as directed--take with food heat to the face 20-30 minutes 4-6 times a day for pain Salt water gargles, throat lozenges or throat sprays as desired Antibiotic as directed--finished the medication If your symptoms persist, change or worsen significantly before you can contact your personal physician then please, without delay, go to the emergency department for further evaluation. Follow-up with PCP in 7-10 days or sooner if needed Patient Language: Danish Prescriptions: New azithromycin 250 mg tablet See Rx Instructions .ROUTE .COMPLEX Qty: 6 0RF Rx Instructions: For 250 mg dose pack: take 500 mg today (day 1), then 250 mg for 4 days (days 2-5) methylprednisolone [Medrol ([place])] 4 mg tablets,dose pack See Rx Instructions .ROUTE .COMPLEX Qty: 21 0RF Rx Instructions: orally per package directions take with food No Action ibuprofen 600 mg tablet 600 mg PO Q6H PRN (Reason: cramps) Qty: 30 0RF Follow-up/Referrals: PHYSICIAN,MAJOR ASSEMBLY INSPECTOR [Primary Care Provider, Internal Medicine] Time of Disposition: 09:10 Quality [place] Coma Scale Eyes: Open Verbal: Oriented and Alert Motor: Follows Commands [place] Coma Total Score: 15
--- OUTSIDE RECORDS SUMMARY | 2025-05-13 08:50 | XMS_ITS | Encounter Summary ---
Author Organization [facility] Health Address [address] [place] [address] Care Team Providers Care Machinist Automotive Name Role Phone Trena Foss MD Primary Care Provider [phone] Encounter Details Date Type Department Care Team (Late st Contact Info) Description 05/08/2024 Lab Requisition [facility] - DermPath Lab [address] [place] [address] Jeana Acosta, PA [address] [place] [id number] Neoplasm of uncertain behavior of skin Social History Tobacco Use Types Packs/Day Years Used Date Smoking Tobacco: Never Smokeless Tobacco: Never Alcohol Use Standard Drinks/Week Comments Yes 0 (1 standard drink = 0.6 oz pur e alcohol) Comments Unknown Sex and Gender Information Value Date Recorded Sex Assigned at Not on file 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 Gender Identity Not on file Sexual Orientation Not on file documented as of this encounter Plan of Treatment Not on file documented as of this encounter Procedures Procedure Name Priority Date/Time Associated Diagnosis Comments DERMATOPATHOLOGY Routine 05/08/2024 12:0 0 AM CDT Neoplasm of uncertain behavior of skin documented in this encounter Results * DERMATOPATHOLOGY (05/08/2024 12:00 AM CDT) Case Report Dermatopathology Report Case: [id number] Authorizing Provider: Jeana Acosta PA Collected: 05/08/2024 12:00 AM Ordering Location: [facility] - Received: 05/09/2024 01:20 PM DermPath Lab Pathologist: Venecia Hebert MD Specimens: A) - Skin, left anterior neck B) - Skin, posterior neck 4:19 PM CDT DERMATOPATHOLOGY LABORATORY Final Diagnosis Specimen A. SKIN, left anterior neck: SEBORRHEIC KERATOSIS, INFLAMED (L82.0) Specimen B. SKIN, posterior neck: INTRADERMAL MELANOCYTIC NEVUS (D22.4) 4:19 PM CDT DERMATOPATHOLOGY LABORATORY at 1619 CDT Clinical History A-B: neoplasm of uncertain behavior vs Atypical pigmented lesion 4:19 PM CDT DERMATOPATHOLOGY LABORATORY Gross Description Specimen A: Received is one formalin filled container labeled with the patient's name and designated left anterior neck. The specimen consists of a shave biopsy measuring 4x4x2 mm. Jar 0. Specimen B: Received is one formalin filled container labeled with the patient's name and designated posterior neck. The specimen consists of a shave biopsy measuring 6x6x3 mm. Jar 0. 4:19 PM CDT DERMATOPATHOLOGY LABORATORY Microscopic Description Specimen A. SKIN, left anterior neck: There is hyperkeratosis, parakeratosis, papillomatosis, and acanthosis of the epidermis. There is a lymphohistiocytic infiltrate within the papillary dermis that is focally lichenoid. Specimen B. SKIN, posterior neck: There are nests of cytologically bland melanocytes within the dermis that mature with depth. 4:19 PM CDT DERMATOPATHOLOGY LABORATORY Disclaimer An external and internal positive and negative controls are appropriate for the histochemical, immunohistochemical and immunofluorescence stain(s) in this case (if any), except where stated explicitly. The performance characteristics of the stain(s) cited in this report were developed and its performance characteristic determined by the Dermatopathology Laboratory at [facility], directed by Dr. Emmett Cobos. These tests need not be, and therefore are not, approved by the [place] Food and Drug Administration. The tests are used for clinical purposes. Billing Codes Specimen Charges Stain Charges 96818 38165 1 1 4 4:19 PM CDT DERMATOPATHOLOGY LABORATORY Embedded Images 4 4:19 PM CDT DERMATOPATHOLOGY LABORATORY Pathology/Cytology TISSUE SPECIMEN FROM SKIN / Unknown 05/08/2024 05/09/2024 1:20 PM CDT Miscellaneous samples (specimen) TISSUE SPECIMEN FROM SKIN / Unknown 05/08/2024 05/09/2024 1:20 PM CDT [facility] - PATHOLOGY/CYTOLOGY OR DERABLES Final Result DERMATOPATHOLOGY LABORATORY [facility] - Department of Dermatology [facility] [address] [place] [address], [address] [phone] documented in this encounter Visit Diagnoses Diagnosis Neoplasm of uncertain behavior of skin documented in this encounter Care Teams Machinist Automotive Relationship Specialty Start Date End Date Trena Foss MD [address] [place] [address] PCP - General 06/04/10 documented as of this encounter
--- OUTSIDE RECORDS SUMMARY | 2025-05-13 08:50 | XMS_ITS | Clinical Summary ---
Author Organization [facility] Interview Address [address] [address] Care Team Providers Care Etiology Teacher Name Role Phone Trena Foss MD Primary Care Provider [phone] Source Comments [facility],non-owned Affiliates and Associated Physician Practices is amultiple site organization consisting of ambulatory clinics and hospital sitesin [place], [place], [place] and [place]. This disclosure is being madepursuant to the Care Everywhere program and may not contain all information available regarding this patient. Last updated 18.[facility] Interview Allergies Active Allergy Reactions Criticality Noted Date Comments Augmentin Diarrhea 11/29/2017 Medications * Be aware that medications may not be up to date on this document. Alwaysverify current medications with the patient. melatonin 3 MG tabletIndicatio ns:Other psoriasis Take 6 mg by mouth Active naproxen (NAPROSYN) 500 MG tabletIndicatio ns:Other psoriasis Take 500 mg by mouth 12/16/2015 Active [place]-3 Fatty Acids (FISH OIL) 1200 MGIndications:O ther psoriasis Take 1,200 mg by mouth Active clobetasol (OLUX) 0.05 %Indications:Ot her psoriasis Apply to affected area on scalp twice daily. 30 days supply. 100 g 5 01/20/2018 Active clobetasol (TEMOVATE) 0.05 % creamIndication s:Other psoriasis Apply to pink flaky area only on trunk and limbs, do not put on face or skin folds, twice daily as needed. 30 DS 60 g 4 01/20/2018 Active ketoconazole (NIZORAL) 2 % shampooIndicati ons:Other seborrheic dermatitis Apply to wet hair, leave on for 3 minutes, then rinse; up to daily. 30 days supply 240 mL 11 01/20/2018 Active Ketoconazole 2 %Indications:Ot her seborrheic dermatitis Apply to your scalp at night. 30 DS. 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 Neoplasm of uncertain behavior of skin 7 Other seborrheic dermatitis 03/05/2017 Other psoriasis 03/05/2017 Family History Medical History Relation Name Comments Arthritis Father torn meniscus Cancer Other breast Glaucoma Paternal Grandmother Pulmonary Embolism Sister Arthritis - Rheumatoid Neg Hx CVA Neg Hx Cancer - Breast Neg Hx Cancer - Skin, Melanoma Neg Hx Cancer - Skin, Non Melanoma Neg Hx Eczema Neg Hx Hemophilia Neg Hx Inflammatory Bowel Disease Neg Hx Lupus Neg Hx Psoriasis Neg Hx Thyroid Disease Neg Hx Relation Name Status Comments Father Other Paternal Grandmother Sister Social History Tobacco Use Types Packs/Day Years Used Date Smoking Tobacco: Never Smokeless Tobacco: Never Tobacco Cessation:Counseling Given: Not Answered Alcohol Use Standard Drinks/Week Comments Yes 0 (1 standard drink = 0.6 oz pur e alcohol) PHQ-2 Answer Date Recorded Patient Health Questionnaire-2 Score 0 01/16/2025 Comments No Sex and Gender Information Value Date Recorded Sex Assigned at Not on file Legal Sex Female 5:19 PM COORDINATOR OF REHABILITATION SERVICES Gender Identity Not on file Sexual Orientation Not on file Last Filed Vital Signs Vital Sign Reading Time Taken Comments Blood Pressure 134/92 01/23/2025 10:00 AM CDT Pulse 67 03/15/2017 2:53 PM CDT Temperature 37 C (98.6 F) 03/15/2017 2:53 PM CDT Respiratory Rate 16 03/15/2017 2:53 PM CDT Oxygen Saturation 98% 12/16/2015 8:22 AM CDT Inhaled Oxygen Concentration - - Weight 87.6 kg (193 lb 3.2 oz) 01/23/2025 10:00 AM CDT Height 167.6 cm (5' 6) 01/23/2025 10:00 AM CDT Body Mass Index 31.18 01/23/2025 10:00 AM CDT Plan of Treatment Health Maintenance Due Date Last Done Comments LIPID TESTING 1980 MAMMOGRAM 1980 HIV SCREENING 1995 HEPATITIS C SCREENING 06/24/1998 DTAP/TDAP/TD VACCINES (1 - Tdap) 1999 HEPATITIS B VACCINE (1 of 3 - 19+ 3-dose series) 1999 PAP SMEAR 2001 HPV VACCINE (1 - 3-dose SCDM series) 2007 SCREENING FOR DIABETES 01/23/2025 07/06/2016, 2015 INFLUENZA VACCINE (#1) 2025 , 07/09/2023, 06/13/2022, Additional history exists ZOSTER VACCINE (1 of 2) 2030 COVID-19 VACCINE Completed 06/02/2024, , 05/28/2021, Additional history exists DEPRESSION SCREENING Completed 01/23/2025 HIB VACCINE Aged Out No longer eligi ble based on patient's age to complete this topic MENINGOCOCCAL (Group B) VACCINE SHARED DECISION-MAKING Aged Out No longer eligible based on patient's age to complete this topic MENINGOCOCCAL GROUPS A/C/Y/W VACCINE Aged Out No longer eligible based on patient's age to complete this topic PNEUMOCOCCAL VACCINE Aged Out No long er eligible based on patient's age to complete this topic Procedures Procedure Name Priority Date/Time Associated Diagnosis Comments COMPREHENSIVE METABOLIC PANEL Routine 07/06/2016 4:24 PM COORDINATOR OF REHABILITATION SERVICES from Last 3 Months or Most Recently Relevant to Health Maintenance Results * COMPREHENSIVE METABOLIC PANEL (07/06/2016 4:24 PM COORDINATOR OF REHABILITATION SERVICES) BUN 13 7 - 26 mg/dL [facility] Creatinine 0.9 0.6 - 1.2 mg/dL [facility] Sodium 139 136 - 145 mmol/L [facility] Potassium 4.2 3.5 - 4.5 mmol/L [facility] Chloride 104 98 - 107 mmol/L [facility] CO2 24 22 - 29 mmol/L [facility] Glucose 86 70 - 115 mg/dL [facility] Calcium 9.2 8.4 - 10.2 mg/dL [facility] Protein Total 7.0 6.0 - 8.3 g/dL [facility] Albumin 3.6 3.4 - 5.0 g/dL [facility] Bilirubin Total 0.7 0.2 - 1.2 mg/dL [facility] Alkaline Phosphatase 43 40 - 150 Units/L [facility] ALT 29 0 - 55 Units/L [facility] AST 22 5 - 34 Units/L [facility] Anion Gap 15 8 - 18 [facility] BUN/Creatinine Ratio 14 7 - 23 [facility] Osmolality Calculated 287 270 - 300 mOsm/kg [facility] Albumin/Globulin Ratio 1.1 1.1 - 2.3 [facility] eGFR >60 >60 mL/min/1.[address] [facility] Blood specimen (specimen) BLOOD SPECIMEN / Unknown 07/06/2016 4:24 PM COORDINATOR OF REHABILITATION SERVICES 07/06/2016 5:05 PM COORDINATOR OF REHABILITATION SERVICES Cindy Bro MD LAB - CHEMISTRY ORDERABLE S Final Result [facility] [address] [phone] from Last 3 Months or Most Recently Relevant to Health Maintenance Insurance [place] [id number] [facility] [employer] Care Teams Etiology Teacher Relationship Specialty Start Date End Date Trena Foss MD [address] [place] [address] PCP - General 06/04/10
--- OUTSIDE RECORDS SUMMARY | 2025-05-13 08:50 | XMS_ITS | Patient Health Record ---
Author Organization [facility] Address [address] [place], [place] [address] Care Team Providers Care Field Auto Appraiser Name Role Phone JESSICA HERNANDEZ Unavailable [phone] Trena Foss Unavailable Unavailable Reason For Referral No Information Medications Medication SIG (Take, Route, Frequency, Duration) Notes Start Date End Date Status follicle stimulating hormone 75 UNT / luteinizing hormone 75 UNT Injection [Menopur] follicle stimulating hormone 75 UNT / luteinizing hormone 75 UNT Injection [Menopur]Original Medicationfollicle stimulating hormone 75 UNT / luteinizing hormone 75 UNT Injection [Menopur] *Reorder from [facility] 07/14/2020 Active cetrorelix 0.25 MG Injection [Cetrotide] cetrorelix 0.25 MG Injection [Cetrotide]Original Medicationcetrorelix 0.25 MG Injection [Cetrotide] *Reorder from [facility] for eRx and Interaction Alerts* 07/14/2020 Active follitropin isabelle 600 UNT/ML Injectable Solution [Gonal F] follitropin isabelle 600 UNT/ML Injectable Solution [Gonal F]Original Medicationfollitropin isabelle 600 UNT/ML Injectable Solution [Gonal F] *Reorder from [facility] for eRx and Interaction Alerts* 07/14/2020 Active Medrol Dosepak ORAL Medrol DosepakOr iginal MedicationMedrol Dosepak *Reorder from [facility] for eRx and Interaction Alerts* 07/14/2020 Active Plan Of Treatment No Information Insurance Providers Payer Name Payer Address Payer Phone Subscriber Number Group Number Insured Name Patient Relationship to Insured Coverage Start Date Coverage End Date [facility] ATTN CLAIMS [address] [place] [address] [id number] MALORIE ANDERSON Spouse - patient is the spouse of the insured
== END 2025-05-13 09:13 | disposition home or self-care (01) ==
PROVIDERS: Emergency Provider Registered Nurse
DX: R05.1 Acute cough (principal); J01.40 Acute pansinusitis, unspecified; K21.9 Gastro-esophageal reflux disease without esophagitis; L40.9 Psoriasis, unspecified
CPT/HCPCS: 99213; G0463